=== PATIENT | female | born 1980 | race Caucasian/White ===

== ENCOUNTER 2018-09-24 19:17 | Emergency (ER) | payer OTHER ==
[~2018-09-24] VITALS: Ht 162.6 cm; Wt 87.6 kg
[2018-09-24 19:27] VITALS: Ht 162.6 cm; Wt 87.6 kg
--- NOTE | 2018-09-24 22:44 | ERD ---
ER Documentation Chief Complaint Chief Complaint C/O PELVIC PAIN X2 DAYS, STATES 6WEEKS HPI This is a 37-year-old female who presents emergency department with complaints of pelvic pain and vaginal bleeding stated that she is 6 weeks . LMP: 07/18/2018. BOB: Unknown. A0. Denies headache, dizziness, blurry vision, changes in vision, neck pain, neck stiffness, throat pain, difficulty swallowing, difficulty breathing lying flat, loss of bowel bladder control, urinary symptoms, or possibility of being , vaginal bleeding, vaginal discharge, trauma, injury, falls, recent surgery in the last 3 weeks, recent travel, recent long travel, leg pain, difficulty walking, numbness or tingling sensation, recent exposure to any illness, recent antibiotic use in the last 3 months, fever, chills. ROS All systems reviewed and are negative except as per history of present illness. Medications Home Meds Active Scripts Vit No.124/Iron/FA ( Vitamin Tablet) 1 Each Tablet, 1 EACH PO DAILY, #30 TAB Prov:PASILABAN,KLAR F 09/25/18 Acetaminophen* (Tylophen*) 500 Mg Capsule, 1 CAP PO Q6H PRN for PAIN AND OR ELEVATED TEMP, #20 CAP Prov:PASILABAN,KLAR F 09/25/18 Allergies Allergies: Coded Allergies: No Known Allergy (Unverified , 09/24/18) PMhx/Soc Medical and Surgical Hx: pt denies Medical Hx History of Surgery: Yes ( x 3 Last on 02/14/15) Hx Alcohol Use: No Hx Substance Use: No Hx Tobacco Use: No Smoking Status: Never smoker Physical Exam Vitals Physical Exam Const: No acute distress Head: Atraumatic Eyes: Normal Conjunctiva ENT: Normal External Ears, Nose and Mouth. Neck: Full range of motion. No meningismus. Resp: Clear to auscultation bilaterally Cardio: Regular rate and rhythm, no murmurs Abd: Soft, non tender, non distended. Normal bowel sounds. Negative Gentile signs. No CVA tenderness. Skin: No petechiae or rashes Back: No midline or flank tenderness Ext: No cyanosis, or edema Neur: Awake and alert Psych: Normal Mood and Affect Results 24 hrs Laboratory Tests Test 09/24/18 22:55 White Blood Count 12.4 10^3/ul Red Blood Count 4.03 10^6/ul Hemoglobin 12.1 g/dl Hematocrit 36.5 % Mean Corpuscular Volume 90.6 fl Mean Corpuscular Hemoglobin 30.0 pg Mean Corpuscular Hemoglobin Concent 33.2 g/dl Red Cell Distribution Width 13.5 % Platelet Count 365 10^3/UL Mean Platelet Volume 9.5 fl Immature Granulocytes % 0.900 % Neutrophils % 57.6 % Lymphocytes % 32.7 % Monocytes % 6.0 % Eosinophils % 2.3 % Basophils % 0.5 % Nucleated Red Blood Cells % 0.0 /100WBC Immature Granulocytes # 0.110 10^3/ul Neutrophils # 7.1 10^3/ul Lymphocytes # 4.1 10^3/ul Monocytes # 0.8 10^3/ul Eosinophils # 0.3 10^3/ul Basophils # 0.1 10^3/ul Nucleated Red Blood Cells # 0.0 10^3/ul Urine Color YELLOW Urine Clarity CLEAR Urine pH 6.0 Urine Specific [place] 1.021 Urine Ketones NEGATIVE mg/dL Urine Nitrite NEGATIVE mg/dL Urine Bilirubin NEGATIVE mg/dL Urine Urobilinogen NEGATIVE mg/dL Urine Leukocyte Esterase NEGATIVE Tommy/ul Urine Hemoglobin NEGATIVE mg/dL Urine Glucose NEGATIVE mg/dL Urine Total Protein NEGATIVE mg/dl Sodium Level 139 mmol/L Potassium Level 3.9 mmol/L Chloride Level 104 mmol/L Carbon Dioxide Level 29 mmol/L Anion Gap 6 Blood Urea Nitrogen 12 mg/dl Creatinine 0.56 mg/dl Est Glomerular Filtrat Rate mL/min > 60 mL/min Glucose Level 97 mg/dl Calcium Level 9.2 mg/dl Total Bilirubin 0.1 mg/dl Direct Bilirubin 0.00 mg/dl Indirect Bilirubin 0.1 mg/dl Aspartate Amino Transf (AST/SGOT) 99 IU/L Alanine Aminotransferase (ALT/SGPT) 113 IU/L Alkaline Phosphatase 119 IU/L Total Protein 7.3 g/dl Albumin 4.0 g/dl Globulin 3.30 g/dl Albumin/Globulin Ratio 1.21 Amylase Level 77 U/L Lipase 86 U/L Beta HCG, Quantitative 7178.8 mIU/ml Current Medications Medications Dose Sig/Jaycee Start Time Status Last (Trade) Ordered Route PRN Stop Time Admin Dose Reason Admin 500 mg ONCE STAT 09/24/18 DC 09/24/18 Acetaminophen PO 22:45 23:27 (Tylenol 09/24/18 22:49 Tab) Procedures/MDM HCG level on 09/15/2018 is 10,348. HCG level on 09/18/2018 is 9191. Diagnostic tests: Urinalysis: Reviewed. Culture urine: Sent. Type and Rh: O+. HCG quantitative: 7178.8. OB ultrasound: Single intrauterine gestation. No emboli or yolk sac demonstrated. This may be secondary to early stage of gestation. Suggest follow-up serial serum beta hCG levels and follow-up ultrasound. Subchorionic hemorrhage demonstrated, measuring 2.7 cm in length by 0.5 cm in thickness. Treatment: Tylenol. Re-evaluation: No episode of emesis here in emergency department. Denies vaginal bleeding. No signs of hemorrhaging. Differential diagnosis I have low suspicion for ectopic , sepsis, hemorrhaging. Final diagnosis: Pelvic pain and . Threatened . Prescription: Tylenol. vitamins. Follow-up with OB in the next 24-48 hours. Come back here in the next 24-48 hours for a recheck of hCG levels/blood works and possible ultrasound. Come back here in the emergency department for any new symptoms or any worsening symptoms. All questions and concerns were answered. Patient and family members verbalized understanding and agreed with plan of care. Hemodynamically stable on discharge. Departure Diagnosis: Primary Impression: Pelvic pain complicating Additional Impression: Miscarriage Condition: Stable Additional Instructions: Follow-up with OB in the next 24-48 hours. Come back here in the next 24-48 hours for a recheck of hCG levels/blood works and possible ultrasound. Come back here in the emergency department for any new symptoms or any worsening symptoms. BHUPENDRA RAHMAN Sep 24, 2018 22:44
[2018-09-24] MEDS ORDERED: ACETAMINOPHEN 500 MG TAB PO STA (22:45)
[2018-09-25 02:15] VITALS: BP 116/58; PULSE 92; RESP 20
[2018-09-25] MEDS ORDERED: ACET500C5 PO (02:24)
[2018-09-25] MEDS ORDERED: PREN-93 PO (02:24)
== END 2018-09-25 02:54 | disposition home or self-care (01) ==
LOC: FTE 19:17
DX: O26.891 Other specified pregnancy related conditions, first trimester (principal); O03.9 Complete or unspecified spontaneous abortion without complication; R10.2 Pelvic and perineal pain
CPT/HCPCS: 76801; 76817; 80053; 81003; 82150; 83690; 84702; 85025; 86900; 86901; 87086; Z7610; 36415